=== PATIENT | female | born 1960 | race Caucasian/White ===

== ENCOUNTER → 2016-03-14 | Outpatient (REF) | payer BC ==
[2016-03-14 13:45] LABS: PERCENT SATURATION 15.1 % (13.2-37.4)
== END ==
LOC: M LAB REF 12:30
PROVIDERS: ATTEND Internal Medicine
DX: D50.9 Iron deficiency anemia, unspecified (principal)

== ENCOUNTER → 2016-07-10 | Outpatient (REF) | payer BC | LOC: M LAB REF 12:31 | PROVIDERS: ATTEND Internal Medicine | DX: R31.9 Hematuria, unspecified (principal) ==

== ENCOUNTER → 2017-03-11 | Outpatient (REF) | payer BC ==
[2017-03-11 21:01] LABS: FERRITIN 196 NG/ML (8-252); IRON (FE) 139 UG/DL (50-170); PERCENT SATURATION 44.8 % (13.2-45.0); TOTAL IRON BINDING CAPACITY 310 UG/DL (250-450)
[2017-03-11 21:06] LABS: VITAMIN B12 LEVEL 610 PG/ML (247-911)
== END ==
LOC: M LAB REF 19:29
DX: D64.9 Anemia, unspecified (principal)
CPT/HCPCS: 83550

== ENCOUNTER → 2018-06-02 | Outpatient (REF) | payer BC ==
[2018-06-03 09:02] LABS: H PYLORI QUALITATIVE IgG NEGATIVE (NEGATIVE)
== END ==
LOC: M LAB REF 16:35
PROVIDERS: ATTEND Internal Medicine
DX: R14.0 Abdominal distension (gaseous) (principal)

== ENCOUNTER 2019-04-09 15:29 | Emergency (ER) | payer BC ==
[~2019-04-09] VITALS: Ht 160 cm; Wt 118.2 kg
[2019-04-09] MEDS ORDERED: NAPR-885 PO (15:56)
[2019-04-09] MEDS ORDERED: METF-791 PO (15:56)
[2019-04-09] MEDS ORDERED: OMEP-221 PO (15:56)
[2019-04-09] MEDS ORDERED: ALLE1TAB23 PO (15:56)
[2019-04-09] MEDS ORDERED: LOSA50TA88 PO (15:56)
[2019-04-09] MEDS ORDERED: ESCI10TA2 PO (15:56)
[2019-04-09] MEDS ORDERED: ESTR10TA (15:56)
[2019-04-09] MEDS ORDERED: ATEN100T PO (15:56)
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
[2019-04-09] MEDS ORDERED: PERCOCET 5MG/325MG TAB PO ONE (16:45)
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
[2019-04-09 17:31] LABS: BASO # 0.1 10^3/uL (0.0-0.2); BASO % 0.7 % (0.0-1.0); EOS # 0.3 10^3/uL (0.0-0.5); EOS % 1.8 % (0.0-3.0); HEMATOCRIT 41.1 % (36.0-47.0); HEMOGLOBIN 12.8 g/dl (12.0-15.5); LYMPH # 2.4 10^3/uL (1.5-5.0); LYMPH % 17.1 % (24.0-44.0); MEAN CORPUSCULAR HEMOGLOBIN 27.5 pg (27.0-33.0); MEAN CORPUSCULAR HGB CONC 31.1 g/dl (32.0-36.5); MEAN CORPUSCULAR VOLUME 88.2 fl (80.0-96.0); NEUTROPHILS # 10.3 10^3/uL (1.5-8.5); PLATELET COUNT, AUTOMATED 263 10^3/uL (150-450); RED BLOOD COUNT 4.66 10^6/uL (4.00-5.40); WHITE BLOOD COUNT 14.1 10^3/uL (4.0-10.0)
[2019-04-09 17:46] LABS: INR 1.03; PROTHROMBIN TIME 13.2 SECONDS (11.8-14.0)
[2019-04-09 17:47] LABS: PARTIAL THROMBOPLASTIN TIME 27.9 SECONDS (25.0-38.4)
[2019-04-09 17:51] LABS: ALBUMIN 3.7 GM/DL (3.2-5.2); ALT/SGPT 25 U/L (12-78); BILIRUBIN,DIRECT 0.1 MG/DL (0.0-0.2); BILIRUBIN,TOTAL 0.3 MG/DL (0.2-1.0); BLOOD UREA NITROGEN 20 MG/DL (7-18); CALCIUM LEVEL 9.1 MG/DL (8.5-10.1); CARBON DIOXIDE LEVEL 29 MEQ/L (21-32); CHLORIDE LEVEL 107 MEQ/L (98-107); CPK CREATINE PHOSPHOKINASE 93 U/L (26-192); CREATININE FOR GFR 0.79 MG/DL (0.55-1.30); GLOMERULAR FILTRATION RATE > 60.0 (>51); GLUCOSE, FASTING 104 MG/DL (70-100); POTASSIUM SERUM 3.7 MEQ/L (3.5-5.1); SODIUM LEVEL 140 MEQ/L (136-145); TOTAL PROTEIN 6.9 GM/DL (6.4-8.2)
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
[2019-04-09] MEDS ORDERED: MORPHINE 4 MG/ML 1ML VIAL/SYRINGE (J2270) IV ONE (18:30)
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
[2019-04-09] MEDS ORDERED: MORPHINE 4 MG/ML 1ML VIAL/SYRINGE (J2270) IV PRN (21:15)
[2019-04-09 22:00] VITALS: BP 113/58
== END 2019-04-09 22:05 | disposition short-term general hospital (02) ==
LOC: M ED 15:29 → EDBD 15:29 → M ED 22:05
DX: S82.251A Displaced comminuted fracture of shaft of right tibia, initial encounter for closed fracture (principal); M47.812 Spondylosis without myelopathy or radiculopathy, cervical region; V03.00XA Pedestrian on foot injured in collision with car, pick-up truck or van in nontraffic accident, initial encounter; Y92.524 Gas station as the place of occurrence of the external cause; Y93.89 Activity, other specified; Y99.9 Unspecified external cause status; E11.9 Type 2 diabetes mellitus without complications; I10 Essential (primary) hypertension; K21.9 Gastro-esophageal reflux disease without esophagitis; Z79.84 Long term (current) use of oral hypoglycemic drugs; Z79.899 Other long term (current) drug therapy; Z88.8 Allergy status to other drugs, medicaments and biological substances; Z88.0 Allergy status to penicillin; Z88.2 Allergy status to sulfonamides; Z91.013 Allergy to seafood
CPT/HCPCS: 70450; 72125; 72170; 73080; 73564; 73590; 73630; 73700; 80048; 80076; 82550; 83605; 85025; 85610; 85730; 86850; 86900; 86901; 93041; 94760; 99285; J2270

== ENCOUNTER → 2019-08-29 | Outpatient (CLI) | payer BC ==
[~2019-08-29] MED LIST: ALLE1TAB23 PO; ATEN100T PO; ESCI10TA2 PO; ESTR10TA; LOSA50TA88 PO; METF-838 PO; NAPR-885 PO; OMEP-221 PO
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
== END ==
LOC: M SLEEP 20:00
PROVIDERS: ATTEND Nurse Practitioner Adult Health
DX: G47.33 Obstructive sleep apnea (adult) (pediatric) (principal)

== ENCOUNTER → 2019-09-17 | Outpatient (CLI) | payer BC ==
--- NOTE | 2019-11-15 08:06 | SLEEPCENT ---
DATE: 09/17/2019 ORDERED BY: Rabia Palomares NP Nocturnal polysomnography was performed for the titration of pressure therapy in this patient with obstructive sleep apnea syndrome, apnea-hypopnea index 35.5. For testing, a ResMed Chaidez nasal pillow device of small size was used, 4 cm of water pressure applied to the circuit, and the lights were extinguished. Seven hours and 48 minutes of data reviewed. There was 261.5 minutes of sleep identified. Sleep latency was prolonged at 183 minutes. REM latency was mildly prolonged at 135 minutes. Sleep architecture improved once established on optimal pressure therapy. Overall sleep efficiency was 56.4%. The electrocardiogram showed a sinus rhythm with an average heart rate of 60 beats per minute. Occasional PVCs were seen. EEG showed normal waveforms for wake and sleep. Respiratory events were fully palliated with CPAP at a pressure of 11. Some limb activity was appreciated. Limb movement arousals were few. IMPRESSION AND PLAN: Obstructive sleep apnea syndrome (G47.33). RECOMMENDATIONS: Nightly use of pressure therapy 11 cm of water. /diana Vera edited: 12/29/2019 1052 richard ROMO
== END ==
LOC: M SLEEP 20:00
PROVIDERS: ATTEND Nurse Practitioner Adult Health
DX: G47.33 Obstructive sleep apnea (adult) (pediatric) (principal)

== ENCOUNTER → 2020-08-16 | Outpatient (REF) | payer BC ==
[~2020-08-16] MED LIST changes: +ESCI10TA16 PO; -ESCI10TA2 PO
[2020-08-17 17:05] LABS: PERCENT SATURATION 11.3 % (13.2-45.0)
== END ==
LOC: M LAB REF 16:18
PROVIDERS: ATTEND Internal Medicine
DX: D64.9 Anemia, unspecified (principal)

== ENCOUNTER → 2020-10-04 | Outpatient (CLI) | payer BC ==
[~2020-10-04] MED LIST changes: +BENA25CA4 PO; +CITRTAB18 PO; +D31000TA2 PO; +EQL50TAB2 PO; +FERR32TA PO; +GABA-1171 PO; +LEXA1TAB PO; +VALS1TAB66 PO
== END ==
LOC: M LABSMTC 09:42
PROVIDERS: ATTEND Anesthesiology
DX: Z01.812 Encounter for preprocedural laboratory examination (principal); Z20.822 Contact with and (suspected) exposure to COVID-19

== ENCOUNTER 2020-10-09 07:12 | Day surgery (SDC) | payer BC ==
[~2020-10-09] VITALS: Ht 165.1 cm; Wt 126.6 kg
[2020-10-09] MEDS ORDERED: propofoL 200 MG/20 ML VIAL As Ordered ONE (07:27)
[2020-10-09] MEDS ORDERED: fentaNYL 100 MCG/2 ML INJECTION (J3010) As Ordered ONE (07:27)
[2020-10-09] MEDS ORDERED: LIDOCAINE 2% 100MG/5ML SDV (FOR ANES.) As Ordered ONE (07:27)
--- NOTE | 2020-10-09 08:20 | ROOR ---
Patient Name: Opal Barahona Procedure Date: 10/09/2020 8:00 AM Date of : 1960 Age: 60 Room: [facility] Gender: Female Note Status: Finalized Procedure: Upper GI endoscopy Indications: Iron deficiency anemia Providers: Jonas Jaffe Jr, MD Referring MD: Anuja Vera DO Requesting Provider: Medicines: Propofol per Anesthesia Complications: No immediate complications. Procedure: Pre-Anesthesia Assessment: - Prior to the procedure, a History and Physical was performed, and patient medications and allergies were reviewed. The patient is competent. The risks and benefits of the procedure and the sedation options and risks were discussed with the patient. All questions were answered and informed consent was obtained. Patient identification and proposed procedure were verified by the physician and the nurse in the pre-procedure area and in the procedure room. Mental Status Examination: alert and oriented. Airway Examination: normal oropharyngeal airway and neck mobility. Respiratory Examination: clear to auscultation. CV Examination: normal. ASA Grade Assessment: II - A patient with mild systemic disease. After reviewing the risks and benefits, the patient was deemed in satisfactory condition to undergo the procedure. The anesthesia plan was to use moderate sedation / analgesia (conscious sedation). Immediately prior to administration of medications, the patient was re-assessed for adequacy to receive sedatives. The heart rate, respiratory rate, oxygen saturations, blood pressure, adequacy of pulmonary ventilation, and response to care were monitored throughout the procedure. The physical status of the patient was re-assessed after the procedure. The Endoscope was introduced through the mouth, and advanced to the second part of duodenum. The upper GI endoscopy was accomplished without difficulty. The patient tolerated the procedure well. Findings: The upper third of the esophagus, middle third of the esophagus and lower third of the esophagus were normal. The gastroesophageal junction, cardia, gastric body, gastric antrum, prepyloric region of the stomach and pylorus were normal. A few small pedunculated and sessile polyps with no bleeding and no stigmata of recent bleeding were found in the gastric fundus. The polyp was removed with a hot snare. Resection and retrieval were complete. The duodenal bulb, first portion of the duodenum and second portion of the duodenum were normal. Impression: - Normal upper third of esophagus, middle third of esophagus and lower third of esophagus. - Normal gastroesophageal junction, cardia, gastric body, antrum, prepyloric region of the stomach and pylorus. - A few gastric polyps. Resected and retrieved. - Normal duodenal bulb, first portion of the duodenum and second portion of the duodenum. Recommendation: - Telephone my office for pathology results as previously scheduled. Procedure Code(s): --- Professional --- 17882, Esophagogastroduodenoscopy, flexible, transoral; with removal of tumor(s), polyp(s), or other lesion(s) by snare technique Diagnosis Code(s): --- Professional --- K31.7, Polyp of stomach and duodenum D50.9, Iron deficiency anemia, unspecified CPT copyright 2019 [employer]. All rights reserved. The codes documented in this report are preliminary and upon apple packing header review may be revised to meet current compliance requirements. Jonas Jaffe MD Jonas Jaffe Jr, MD 10/09/2020 8:20:13 AM Electronically signed by Jonas Jaffe Jr, MD Number of Addenda: 0 Note Initiated On: 10/09/2020 8:00 AM Estimated Blood Loss: Estimated blood loss: none.
--- NOTE | 2020-10-09 08:31 | ROOR ---
Patient Name: Opal Barahona Procedure Date: 10/09/2020 8:00 AM Date of : 1960 Age: 60 Room: [facility] Gender: Female Note Status: Finalized Procedure: Colonoscopy Indications: Iron deficiency anemia Providers: Jonas Jaffe Jr, MD Referring MD: Anuja Vera DO Requesting Provider: Medicines: Propofol per Anesthesia Complications: No immediate complications. Procedure: Pre-Anesthesia Assessment: - Prior to the procedure, a History and Physical was performed, and patient medications and allergies were reviewed. The patient is competent. The risks and benefits of the procedure and the sedation options and risks were discussed with the patient. All questions were answered and informed consent was obtained. Patient identification and proposed procedure were verified by the physician and the nurse in the pre-procedure area and in the procedure room. Mental Status Examination: alert and oriented. Airway Examination: normal oropharyngeal airway and neck mobility. Respiratory Examination: clear to auscultation. CV Examination: normal. ASA Grade Assessment: III - A patient with severe systemic disease. After reviewing the risks and benefits, the patient was deemed in satisfactory condition to undergo the procedure. The anesthesia plan was to use moderate sedation / analgesia (conscious sedation). Immediately prior to administration of medications, the patient was re-assessed for adequacy to receive sedatives. The heart rate, respiratory rate, oxygen saturations, blood pressure, adequacy of pulmonary ventilation, and response to care were monitored throughout the procedure. The physical status of the patient was re-assessed after the procedure. The Colonoscope was introduced through the anus and advanced to the cecum, identified by appendiceal orifice and ileocecal valve. The colonoscopy was performed without difficulty. The patient tolerated the procedure well. The quality of the bowel preparation was adequate. Findings: The rectum, recto-sigmoid colon, sigmoid colon, descending colon, transverse colon, ascending colon, cecum, appendiceal orifice and ileocecal valve appeared normal. Non-bleeding external and internal hemorrhoids were found during endoscopy. The hemorrhoids were moderate. Impression: - The rectum, recto-sigmoid colon, sigmoid colon, descending colon, transverse colon, ascending colon, cecum, appendiceal orifice and ileocecal valve are normal. - Non-bleeding external and internal hemorrhoids. - No specimens collected. Recommendation: - Discharge patient to home (ambulatory). - Repeat colonoscopy in 10 years for screening purposes. Procedure Code(s): --- Professional --- 59103, Colonoscopy, flexible; diagnostic, including collection of specimen(s) by brushing or washing, when performed (separate procedure) Diagnosis Code(s): --- Professional --- K64.8, Other hemorrhoids D50.9, Iron deficiency anemia, unspecified CPT copyright 2019 [employer]. All rights reserved. The codes documented in this report are preliminary and upon induction machine setter review may be revised to meet current compliance requirements. Jonas Jaffe MD Jonas Jaffe Jr, MD 10/09/2020 8:31:30 AM Electronically signed by Jonas Jaffe Jr, MD Number of Addenda: 0 Note Initiated On: 10/09/2020 8:00 AM Estimated Blood Loss: Estimated blood loss: none.
[2020-10-09 09:02] VITALS: BP 134/63
[2020-10-09] MEDS ORDERED: NS 1,000 ML IV ONE (13:30)
== END 2020-10-09 09:21 | disposition home or self-care (01) ==
LOC: M OPP 07:12
PROVIDERS: ATTEND Surgery
DX: C7A.092 Malignant carcinoid tumor of the stomach (principal); K64.8 Other hemorrhoids; D80.6 Antibody deficiency with near-normal immunoglobulins or with hyperimmunoglobulinemia; K31.7 Polyp of stomach and duodenum; Z79.84 Long term (current) use of oral hypoglycemic drugs; Z79.899 Other long term (current) drug therapy; Z91.013 Allergy to seafood; Z88.0 Allergy status to penicillin; Z88.1 Allergy status to other antibiotic agents; Z88.2 Allergy status to sulfonamides; Z88.8 Allergy status to other drugs, medicaments and biological substances
CPT/HCPCS: 43251; 45378; 88305; 88341; 88342; J3010

== ENCOUNTER → 2021-02-16 | Outpatient (REF) | payer BC ==
[2021-02-16 17:04] LABS: FERRITIN 22 NG/ML (8-252); IRON (FE) 34 UG/DL (50-170); PERCENT SATURATION 8.9 % (13.2-45.0); TOTAL IRON BINDING CAPACITY 380 UG/DL (250-450)
[2021-02-19 11:28] LABS: CA19-9 TUMOR MARKER,CARBOHYDRA < 1.2 U/ML (<35.0)
== END ==
LOC: M LAB REF 16:10
PROVIDERS: ATTEND Internal Medicine
DX: D50.9 Iron deficiency anemia, unspecified (principal); D3A.8 Other benign neuroendocrine tumors

== ENCOUNTER → 2021-03-22 | Outpatient (CLI) | payer BC ==
[~2021-03-22] MED LIST changes: +CITA10TA7 PO; +GASTROGRAFIN SOLUTION 30ML (Q9963) As Ordered ONE; +ISOVUE-370 76% 100ML VIAL As Ordered ONE; +LOSA50TA28 PO; -LOSA50TA88 PO; -OMEP-221 PO; +OMEP40CA5 PO; +QUERPOW2 XX; +VITA500C24 PO; +ZINC1TAB2 PO
== END ==
LOC: M RAD 08:29
PROVIDERS: ATTEND Internal Medicine
DX: D3A.8 Other benign neuroendocrine tumors (principal)
CPT/HCPCS: 74178; 76536; Q9963; Q9967

== ENCOUNTER → 2021-04-23 | Outpatient (REF) | payer BC ==
[~2021-04-23] MED LIST changes: -GASTROGRAFIN SOLUTION 30ML (Q9963) As Ordered ONE; -ISOVUE-370 76% 100ML VIAL As Ordered ONE
== END ==
LOC: M LAB REF 16:46
PROVIDERS: ATTEND Internal Medicine Endocrinology, Diabetes & Metabolism
DX: E04.2 Nontoxic multinodular goiter (principal)

== ENCOUNTER → 2021-08-27 | Outpatient (REF) | payer OTHER ==
[~2021-08-27] MED LIST changes: -D31000TA2 PO; +VITA100093 PO
== END ==
LOC: M LAB REF 16:26
PROVIDERS: ATTEND Internal Medicine
DX: R31.9 Hematuria, unspecified (principal)

== ENCOUNTER → 2021-09-07 | Outpatient (CLI) | payer OTHER | LOC: M RAD 12:39 | PROVIDERS: ATTEND Internal Medicine | DX: R31.9 Hematuria, unspecified (principal); R10.2 Pelvic and perineal pain ==

== ENCOUNTER → 2021-11-23 | Outpatient (REF) | payer OTHER ==
[2021-11-23 17:50] LABS: PERCENT SATURATION 13.5 % (13.2-45.0)
== END ==
LOC: M LAB REF 17:05
PROVIDERS: ATTEND Internal Medicine
DX: D50.9 Iron deficiency anemia, unspecified (principal)

== ENCOUNTER → 2021-11-27 | Outpatient (CLI) | payer OTHER | LOC: M WHC 08:37 | PROVIDERS: ATTEND Internal Medicine | DX: Z12.31 Encounter for screening mammogram for malignant neoplasm of breast (principal); M85.851 Other specified disorders of bone density and structure, right thigh; M85.852 Other specified disorders of bone density and structure, left thigh ==

== ENCOUNTER → 2022-04-25 | Outpatient (REF) | payer OTHER | LOC: M LAB REF 17:27 | PROVIDERS: ATTEND Internal Medicine Endocrinology, Diabetes & Metabolism | DX: E04.2 Nontoxic multinodular goiter (principal) ==

== ENCOUNTER → 2022-05-23 | Outpatient (REF) | payer OTHER ==
[2022-05-23 18:53] LABS: IRON (FE) 41 UG/DL (50-170); PERCENT SATURATION 12.7 % (13.2-45.0); TOTAL IRON BINDING CAPACITY 322 UG/DL (250-425)
[2022-05-23 18:56] LABS: FERRITIN 25.5 NG/ML (7.3-270.7)
[2022-05-24 12:44] LABS: CA19-9 TUMOR MARKER,CARBOHYDRA < 1.2 U/ML (<35.0)
== END ==
LOC: M LAB REF 17:53
PROVIDERS: ATTEND Internal Medicine
DX: D50.9 Iron deficiency anemia, unspecified (principal); D3A.8 Other benign neuroendocrine tumors

== ENCOUNTER 2022-06-24 06:16 | Day surgery (SDC) | payer OTHER ==
[~2022-06-24] VITALS: Ht 162.6 cm; Wt 113.9 kg
[~2022-06-24 06:16] MED LIST changes: +CYCLOPENTOLATE 1% OPHTH SOLN 2ML BTL OS SCH; +FAMO40TA3 PO; +FLURBIPROFEN 0.03% OPHTH SOLN 2.5 ML OS SCH; +PHENYLEPHRINE 2.5% OPHTH SOL 2ML OS SCH; +TETRACAINE 0.5% OPHTH SOLN 4ML OS SCH
[2022-06-24] MEDS ORDERED: LIDOCAINE 1% SDV 5ML VIAL As Ordered ONE (06:29)
[2022-06-24] MEDS ORDERED: LR 1,000 ML IV SCH (07:00)
[2022-06-24] MEDS ORDERED: fentaNYL 100 MCG/2 ML INJECTION As Ordered ONE (07:10)
[2022-06-24] MEDS ORDERED: MIDAZOLAM INJ 2MG/2ML VIAL As Ordered ONE (07:10)
[2022-06-24] MEDS ORDERED: ONDANSETRON 4MG 2ML VIAL As Ordered ONE (07:54)
[2022-06-24 08:12] VITALS: BP 143/64
== END 2022-06-24 08:30 | disposition home or self-care (01) ==
LOC: M SDC 06:16
PROVIDERS: ATTEND Ophthalmology
DX: H25.12 Age-related nuclear cataract, left eye (principal); I10 Essential (primary) hypertension; E11.9 Type 2 diabetes mellitus without complications; K21.9 Gastro-esophageal reflux disease without esophagitis; Z79.84 Long term (current) use of oral hypoglycemic drugs; F32.A Depression, unspecified; Z79.899 Other long term (current) drug therapy; Z88.0 Allergy status to penicillin; Z88.2 Allergy status to sulfonamides; Z91.013 Allergy to seafood; Z88.1 Allergy status to other antibiotic agents
CPT/HCPCS: 66984; J2250; J2405; J3010; V2632

== ENCOUNTER → 2023-04-21 | Outpatient (REF) | payer BC, OTHER ==
[~2023-04-21] MED LIST changes: -ALLE1TAB23 PO; -CYCLOPENTOLATE 1% OPHTH SOLN 2ML BTL OS SCH; +FEXO-157 PO; -FLURBIPROFEN 0.03% OPHTH SOLN 2.5 ML OS SCH; -PHENYLEPHRINE 2.5% OPHTH SOL 2ML OS SCH; -TETRACAINE 0.5% OPHTH SOLN 4ML OS SCH
[2023-04-21 13:30] LABS: PERCENT SATURATION 18.5 % (13.2-45.0)
[2023-04-21 13:32] LABS: FERRITIN 30.6 NG/ML (7.3-270.7)
== END ==
LOC: M LAB REF 12:05
PROVIDERS: ATTEND Internal Medicine
DX: D50.9 Iron deficiency anemia, unspecified (principal)

== ENCOUNTER → 2023-10-29 | Outpatient (REF) | payer BC, OTHER ==
[~2023-10-29] MED LIST changes: -FEXO-157 PO; +FEXO-63 PO
[2023-10-29 13:24] LABS: PERCENT SATURATION 11.2 % (13.2-45.0)
[2023-10-29 13:27] LABS: FERRITIN 40.4 NG/ML (7.3-270.7)
== END ==
LOC: M LAB REF 12:46
PROVIDERS: ATTEND Internal Medicine
DX: D50.9 Iron deficiency anemia, unspecified (principal)